=== PATIENT | male | born 1955 | race Caucasian/White ===

== ENCOUNTER 2020-09-24 06:03 | Day surgery (SDC) | payer MEDICARE, OTHER ==
[2020-09-20 13:41] VITALS: BMI 27.9
[2020-09-24] MEDS ORDERED: Midazolam HCl 2 mg/2 ml Vial ONE ×3 (06:34→07:23)
[2020-09-24] MEDS ORDERED: Fentanyl 100 MCG/2 ML VIAL ONE ×3 (06:34→11:47)
[2020-09-24] MEDS ORDERED: Lidocaine 1% (PF) 30 ML VIAL ONE (06:48)
[2020-09-24] MEDS ORDERED: Heparin 10,000 UNITS/ 10 ML VIAL ONE ×2 (06:48→09:22)
[2020-09-24] MEDS ORDERED: Propofol 500 MG/50 ML VIAL ONE (07:09)
[2020-09-24] MEDS ORDERED: Ketamine 50 MG/ML (10ML VIAL) ONE (07:09)
[2020-09-24] MEDS ORDERED: Lidocaine 1% PF 5 ML VIAL ONE (07:27)
[2020-09-24] MEDS ORDERED: Rocuronium Bromide 10 MG/ML (10ML VIAL) ONE (07:27)
[2020-09-24] MEDS ORDERED: Ondansetron PF 4 MG/2 ML Vial ONE (07:27)
[2020-09-24] MEDS ORDERED: ePHEDrine 50 MG/ML VIAL ONE (07:27)
[2020-09-24] MEDS ORDERED: PHENYLEPHRINE-NS 100 MCG/ML 10 ML SYRINGE ONE ×2 (07:27→09:39)
[2020-09-24] MEDS ORDERED: Heparin 25,000 units/D5W 500 ML ONE (09:22)
[2020-09-24] MEDS ORDERED: SUGAMMADEX SODIUM 200 MG/2 ML VIAL ONE (09:56)
[2020-09-24] MEDS ORDERED: Protamine Sulfate 50 MG/5 ML VIAL ONE (09:56)
[2020-09-24] MEDS ORDERED: hydrALAZINE 20 MG/ML VIAL ONE (14:49)
[2020-09-24] MEDS ORDERED: hydrALAZINE 20 MG/ML VIAL SLOW IVP SCH (15:15)
== END 2020-09-24 16:10 | disposition home or self-care (01) ==
LOC: SDC 06:03
PROVIDERS: ATTEND Internal Medicine Cardiovascular Disease
PROC: 02583ZZ Destruction of Conduction Mechanism, Percutaneous Approach (ICD-10-PCS; principal; 2020-09-24)
PROC: 02K83ZZ Map Conduction Mechanism, Percutaneous Approach (ICD-10-PCS; 2020-09-24)
PROC: 4A023FZ Measurement of Cardiac Rhythm, Percutaneous Approach (ICD-10-PCS; 2020-09-24)
PROC: 4A0234Z Measurement of Cardiac Electrical Activity, Percutaneous Approach (ICD-10-PCS; 2020-09-24)
DX: I48.0 Paroxysmal atrial fibrillation (principal); I42.8 Other cardiomyopathies; I47.2 Ventricular tachycardia; I50.22 Chronic systolic (congestive) heart failure; I25.10 Atherosclerotic heart disease of native coronary artery without angina pectoris; Z79.01 Long term (current) use of anticoagulants; Z79.899 Other long term (current) drug therapy
CPT/HCPCS: 76942; 85347 ×2; 93005; 93312; 93613; 93622; 93623; 93655; 93656; 93657; 93662; C1730; C1731; C1732; C1753; C1894; C2630; 93010; J0360; J1644; J2001; J2250; J2405; J2704; J2720; J3010; J3490